=== PATIENT | male | born 1980 | race African-American/Black ===

== ENCOUNTER 2019-10-22 14:43 | Emergency (ER) | payer OTHER ==
[~2019-10-22] VITALS: Ht 172.7 cm; Wt 66.2 kg
[2019-10-22] MEDS ORDERED: STRIBILD TABLE1 EACH PO (15:37)
[2019-10-22 15:39] LABS: ABSOLUTE NEUTROPHILS 1.8 thou/uL (1.4-8.2); BASOPHILS 0.4 % (0.0-2.0); EOSINOPHILS 0.4 % (0.0-3.0); HEMATOCRIT 44.1 % (42.0-52.0); HEMOGLOBIN 15.3 gm/dL (14.0-18.0); LYMPHOCYTES 34.4 % (24.0-44.0); MCH 31.5 pg (26.0-34.0); MCHC 34.7 g/dL (28.0-37.0); MCV 90.7 fL (80.0-100.0); MONOCYTES 9.3 % (1.0-8.0); PLATELET COUNT 123 thou/uL (150-400); POLYS 55.5 % (36.0-66.0); RBC 4.87 mil/uL (4.50-6.00); RDW 12.9 % (10.5-14.5); WBC 3.2 thou/uL (4.0-11.0)
[2019-10-22 15:59] LABS: ANION GAP 7 mmol/L (7-16); BUN 18 mg/dL (7-18); CHLORIDE 102 mmol/L (98-107); CO2 28 mmol/L (21-32); CREATININE 1.1 mg/dL (0.7-1.3); GLUCOSE 84 mg/dL (74-106); POTASSIUM 3.7 mmol/L (3.5-5.1); SODIUM 137 mmol/L (136-145)
[2019-10-22 16:07] LABS: ALBUMIN 3.6 g/dL (3.4-5.0); SGOT 15 U/L (15-37); SGPT 16 U/L (30-65); TOTAL BILIRUBIN 0.5 mg/dL (<0.1-1.0); TROPONIN-I <0.06 ng/mL (<0.06)
[2019-10-22] MEDS ORDERED: OMEPRAZOLE 20 M20 M1 PO (17:10)
[2019-10-22 17:36] VITALS: BP 119/76
--- NOTE | 2019-10-23 10:49 | EKG ---
[facility] [place] [address] ELECTROCARDIOGRAM REPORT Name: GABRIELA STRICKLAND Room #: [facility]..#: [id number] Admission: 10/22/19 Attend Phys: Discharge: 10/22/19 Date of : 82 Report #: [id number] THIS REPORT FOR: cc: Lauro Arrington MD, Joseph W. MD Lundgren,Trae Carrasquillo MD [facility] ~ THIS REPORT FOR: //name// [facility] ED Test Date: 2019-10-22 Test Time: 14:54:18 Pat Name: GABRIELA STRICKLAND Department: Room: Gender: [employer] Operator: CATERINA : 1980 Requested By: Ofelia Cooper Order Number: [id number] MD: Trae Yarbrough Measurements Intervals [place] Rate: 69 P: 68 MS: 136 QRS: 74 QRSD: 83 T: 58 QT: 406 QTc: 435 Interpretive Statements Sinus rhythm Consider left ventricular hypertrophy ST elev, probable normal early repol pattern Baseline wander in lead(s) II,III,aVF No previous ECG available for comparison Electronically Signed On 10-23-2019 10:48:03 CDT by Trae Yarbrough [email or web address] <ELECTRONICALLY SIGNED> By: Trae Yarbrough MD, [facility] 10/23/19 1048 [id number] [id number] Trae Yarbrough MD, [facility] /EPI
== END 2019-10-22 17:36 | disposition home or self-care (01) ==
LOC: ER 14:43
PROVIDERS: Physician Assistant
DX: K29.70 Gastritis, unspecified, without bleeding (principal); K20.9 Esophagitis, unspecified; Z79.899 Other long term (current) drug therapy

== ENCOUNTER → 2020-08-10 | Outpatient (CLI) | payer OTHER ==
[~2020-08-10] MED LIST: OMEPRAZOLE 20 M20 M1 PO; STRIBILD TABLE1 EACH PO
== END ==
LOC: LAB 13:48
PROVIDERS: ATTEND Specialist
DX: U07.1 COVID-19 (principal)